=== PATIENT | female | born 1995 | race Caucasian/White ===

== ENCOUNTER 2021-07-26 18:35 | Inpatient (IN) | payer BC ==
[2021-07-26] MEDS ORDERED: Lactated Ringers 1,000 ML IV ONE (19:08)
[2021-07-26] MEDS ORDERED: Sodium Chloride 0.9% 10 ML Syringe FLUSH PRN (19:08)
[2021-07-26] MEDS ORDERED: Misoprostol 400 MCG (4 X 100 MCG TAB) RECTAL PRN (19:08)
[2021-07-26] MEDS ORDERED: Acetaminophen 325 MG Tab PO PRN (19:08)
[2021-07-26] MEDS ORDERED: Tranexamic Acid 1,000 MG in Sodium Chloride 0.9% 100 ML IV PRN (19:08)
[2021-07-26] MEDS ORDERED: Penicillin G Potassium 5 MILLUNITS in Sodium Chloride 0.9% 100 ML IV ONE (19:08)
[2021-07-26] MEDS ORDERED: Methylergonovine 0.2 MG/1 ML Amp IM PRN (19:08)
[2021-07-26] MEDS ORDERED: Lidocaine 1% 30 ML SDV INJECT PRN (19:08)
[2021-07-26] MEDS ORDERED: Ondansetron 4 MG/2 ML SDV IVPUSH PRN (19:08)
[2021-07-26] MEDS ORDERED: Carboprost Tromethamine 250 MCG/1 ML Amp IM PRN (19:08)
[2021-07-26] MEDS ORDERED: Oxytocin/Normal Saline 30 UNIT/500 ML BAG IV SCH (19:15)
[2021-07-26] MEDS ORDERED: Penicillin G Potassium 5,000,000 Unit Vial ONE (19:18)
[2021-07-26] MEDS: Lactated Ringers 1,000 ML IV SCH (19:23)
[2021-07-26] MEDS ORDERED: Nalbuphine 10 MG/1 ML Vial IM ONE (21:13)
[2021-07-26] MEDS: Penicillin G Potassium 3 MILLUNITS in Sodium Chloride 0.9% 100 ML IV SCH (23:21)
[2021-07-27] MEDS ORDERED: Nalbuphine 10 MG/1 ML Vial ONE (00:45)
--- NOTE | 2021-07-27 01:05 | HP ---
CHIEF COMPLAINT: Contractions less than 4 minutes apart. HISTORY OF PRESENT ILLNESS: Teresa is a 26-year-old G1, P0-0-0-0 with excellent care at 38-0/7 weeks' gestational age based on first trimester ultrasound. Teresa had a routine visit this morning at 10:30, cervical check performed and revealed soft, 2 cm dilated and 75% Effaced cervix. After the appointment, Teresa returned to work and began to have increased pelvic pressure. By 2:30 p.m., pelvic pressure was too painful, so she went home, sat in the tub, and began timing contractions. When contractions were less than 4 minutes apart, the patient presented to L&D with , Jean Claude, and mother, Bria. Teresa plans to delay any analgesia/anesthesia as long as possible. Plans to breastfeed. The patient denies leakage of fluid, vaginal bleeding, fevers, headache, vision changes, chest pain, shortness of breath, nausea, vomiting, diarrhea, extremity edema. Endorses movement and painful contractions. OBSTETRIC HISTORY: Last menstrual period 10/31/2020. Estimated delivery date 08/09/2021 based on first trimester ultrasound. Anterior placenta. Normal first . Tdap given. Vaccinated for flu. Doubly vaccinated against COVID with Moderna. LABS: B positive blood type. Antibody screen negative. Rubella immune. Syphilis nonreactive. Hepatitis B nonreactive. Hep C nonreactive. HIV nonreactive. Gonorrhea, chlamydia negative. Wet prep negative. TSH within normal limits. Second trimester hemoglobin 12.7, hematocrit 37.2, platelets 250K. 1-hour oral glucose tolerance test 102. The patient is GBS positive. PAST MEDICAL HISTORY: Significant for varicella infection without complication as a child. No drug, alcohol, or tobacco use. No surgical history. FAMILY HISTORY: Significant for breast cancer in maternal grandmother, possibly premenopausal. The patient's mother and father are healthy. SOCIAL HISTORY: Teresa is living near [place]. She has been since 2018 to the father of her baby, Jean Claude Cross. Jean Claude is a garnica. The patient works as a home school liaison officer. They have 2 dogs in the home. REVIEW OF SYSTEMS: See HPI. MEDICATION: vitamin. ALLERGIES: No known drug allergies. OBJECTIVE: Vitals: BP 126/68, HR 85, temp 98.7 respiratory rate 18. General: The patient in mild distress as she experiences contractions. HEENT: Grossly normal. Heart: Regular rate and rhythm without rub or murmur. Lungs: Clear to auscultation bilaterally. Abdomen: Soft, nontender, gravid. Cervical exam: Per Nursing, 3 cm dilated, 100% effaced, and a bulging bag of water at cervical os. head not well applied. Tocometer shows coupling with contractions occurring every 1-1/2 to 4 minutes. heart tone baseline of 150, moderate variability, accels present, category 1 tracing. Extremities: No edema. No clonus bilaterally. Neuro: Appropriate without deficit. LABORATORY DATA: COVID negative. Hemoglobin 13.5, platelets 248. ASSESSMENT: 1. G1, P0. 2. Active labor. 3. Group B Streptococcus positive, penicillin given. 4. Intrauterine at 38-5/7 weeks gestational age. PLAN: Admit for supervision of labor and initiate penicillin G GBS prophylaxis. Anticipate normal cares, Pitocin available if contractions space out. The patient desires to delay analgesia if possible, but happy to have nitrox, Nubain, and intrathecal available in case. plan for normal spontaneous vaginal delivery. All questions answered. The patient in agreement with plan. The patient seen by myself and Dr. Workman. Assessment and plan are under advisement of Dr. Workman. seen and agreed- [facility] /[id number] MTDD
[2021-07-27] MEDS: Lactated Ringers 1,000 ML IV SCH ×3 (02:05→02:53)
--- NOTE | 2021-07-27 02:11 | OBOUT ---
DATE: 07/26/2021 DATE AND TIME OF NST: 07/26/2021. Time 2302 hours to 2322 hours. REASON FOR NST: 1. Intrauterine at 38 weeks by 9 and 1/7 week ultrasound. 2. Active labor upon admission. 3. GBS positive. 4. Currently gotten 2nd dose of penicillin. 5. G1, P0. NST INTERPRETATION: During this time period, heart tone at baseline is approximately 150, and at least two 15 x 15 beats per minute accelerations making this strip reactive as well as reassuring. Tocometer reveals potential for contractions during this time period, felt by patient. Breathing through them. ASSESSMENT: 1. Nonstress test, reactive and reassuring. 2. Tocometer with contractions. Blood pressure 101/57, heart rate 80, temperature 99.2. PLAN: Shortly after NST was performed, vaginal exam done did reveal to be 4+ cm, 100% effaced, 0 station, vertex suspected with artificial rupture of membranes done with bulging bag of water. Yielding copious amounts of clear fluid. For history and physical, please see history and physical done in conjunction with Tiffanie Berry MS3, seen and agreed. For this, records were called for, reviewed and supplemented by patient's history as well as review of systems reviewed and felt to be contributory for what is noted. We will continue penicillin for GBS positive status. Artificial rupture of membranes done as above. We will continue to follow clinically and closely. The patient understands and agrees with the above treatment plan. [facility] /[id number]
[2021-07-27] MEDS ORDERED: fentaNYL 100 MCG/2 ML SDV ONE (02:18)
[2021-07-27] MEDS ORDERED: EPINEPHrine 1 MG/ML SDV ONE ×2 (02:18→14:04)
[2021-07-27] MEDS: Penicillin G Potassium 3 MILLUNITS in Sodium Chloride 0.9% 100 ML IV SCH ×2 (03:30→16:11)
--- NOTE | 2021-07-27 03:57 | PCM.PRNOTE ---
- Free Text/Narrative Note: Requested to provide analgesia to full term patient in severe pain. Upon entering the room, patient is sitting on edge of bed complaining of severe abdominal/pelvic pain and discomfort. Procedure was discussed with patient including adverse outcomes and expectations. Pt consented to analgesia, SAB/IT. Pt placed into a proper sitting position. Landmarks for SAB/IT were identified and marked. Hands were washed and appropriate PPE was applied. Back was prepped with betadine x3. A sterile, transparent, fenestrated drape was applied. Excess betadine was removed. Using 3 mL of a 1% lidocaine solution, a skin wheel was placed at the L2/L3 interspace. A 24 ga (4 inch) Pencan spinal needle was inserted until positive for CSF. Negative for heme or paresthesias. Injected fentanyl 30 mcg, sufentanil 25 mcg, and 7.5 mg of a 0.75% bupivacaine solution with an epi wash. Pt was placed left lateral tilt position for approximately 20 minutes. There were zero complications or adverse outcomes. Will continue to monitor. Procedure Date & Time: 07/27/21 [id number]
[2021-07-27] MEDS ORDERED: Citric Acid/Sodium Citrate Solution 30 ML Cup PO ONE (05:43)
[2021-07-27] MEDS ORDERED: ceFAZolin 2 GM in Premix Bag 1 BAG IV ONE (05:43)
[2021-07-27] MEDS ORDERED: Methylergonovine 0.2 MG Tab PO PRN (05:43)
[2021-07-27] MEDS ORDERED: Carboprost Tromethamine 250 MCG/1 ML Amp IM PRN ×2 (05:43→07:18)
[2021-07-27] MEDS ORDERED: Oxytocin 10 Units/1 ML SDV IM PRN (05:43)
[2021-07-27] MEDS ORDERED: Tranexamic Acid 1,000 MG in Sodium Chloride 0.9% 100 ML IV PRN ×2 (05:43→07:18)
[2021-07-27] MEDS ORDERED: Oxytocin/Normal Saline 30 UNIT/500 ML BAG IV SCH (05:45)
[2021-07-27] MEDS ORDERED: Lactated Ringers 1,000 ML IV SCH ×3 (05:45→07:30)
[2021-07-27] MEDS ORDERED: Oxytocin/Normal Saline 60 UNIT/1,000 ML BAG ONE (06:01)
--- NOTE | 2021-07-27 07:11 | PN ---
DATE: 07/27/2021 SUBJECTIVE: The patient has had her intrathecal, starting to feel some pressure vaginally and has sensation in her legs. She is pain free prior. OBJECTIVE: Initially evaluated vaginal exam reveals to be 7 cm, 100% effaced, 0 station, vertex suspected, and had on the chucks some bloody show also associated with clots about the size of half of a golf ball. Chucks were changed and second evaluation done shortly thereafter did reveal some more bleeding under the chucks, no cervical change, 7 cm and marked caput noted. heart tones: Reviewing heart tones when the patient was on Pitocin, did have some late decelerations in succession. Pitocin was stopped. Thereafter, there has been some mild variability and no true accelerations with vaginal exams x2 over a serial time period approximately 20 minutes or so. There have been no accelerations with vaginal exams as well. Tocometer reveals contractions every 2 to 3 minutes. Pitocin is not running. ASSESSMENT AND PLAN: Intrauterine now at 38 and 1/7th weeks by 9 and 1/7th weeks ultrasound, admitted in active labor. GBS positive. Penicillin multiple doses given. G1, P0, now with nonreassuring status with vaginal bleeding more than expected and suspect that the patient may be having an early abruption versus other issues with status. I did discuss this with the patient, her mother, and her . I did discuss with them recommendation to call in the OR crew and proceed with primary low transverse upon their arrival when they were ready unless maternal status changes and then we will make a decision at that time accordingly. I did discuss with her, her , and her mother risks, benefits, alternatives, and complications of C- section including, but not limited to, infection, bleeding, damage to internal organs such as bowel, bladder, tubes, uterus, ovaries, sometimes fetus, rarely needing blood transfusion or further surgery, and rare maternal or . She understands and agrees and wishes to proceed. Verbal and written consent obtained. Questions were answered. Proceed to the OR as soon as the crew is ready and available. [facility] /[id number]
--- NOTE | 2021-07-27 07:17 | PN ---
DATE: 07/27/2021 SUBJECTIVE: The patient feels mild pressure intrathecal has been wearing off. OBJECTIVE: heart tones in the 140s range. No true accelerations, 15 x 15 beats in the last 10 to 15 minute. Tocometer reveals contractions every 2 to 3 minutes. Vaginal exam does reveal to be unchanged 7 cm, 100% effaced, 0 station, vertex, suspected with marked caput noted and continued vaginal bleeding more then expected and there is a small stringy-like clot. ASSESSMENT AND PLAN: Increased vaginal bleeding with slowed cervical dilation with concerns with status and potential for abruption. I did discuss with the patient earlier proceeding to the OR as soon as crew is ready and available. They are at this point in time. We will proceed to the OR as soon as possible for primary low transverse . She understands and agrees with the above treatment plan. [facility] /[id number] OJ
[2021-07-27] MEDS ORDERED: Acetaminophen 325 MG Tab PO PRN (07:18)
[2021-07-27] MEDS ORDERED: diphenhydrAMINE 50 MG/ML SDV IVPUSH PRN (07:18)
[2021-07-27] MEDS ORDERED: Misoprostol 400 MCG (4 X 100 MCG TAB) RECTAL PRN (07:18)
[2021-07-27] MEDS ORDERED: Naloxone 2 MG/2 ML Syringe IVPUSH PRN (07:18)
[2021-07-27] MEDS ORDERED: ePHEDrine 50 MG/ML SDV IVPUSH PRN (07:18)
[2021-07-27] MEDS ORDERED: Ondansetron 4 MG/2 ML SDV IVPUSH PRN (07:18)
[2021-07-27] MEDS ORDERED: Methylergonovine 0.2 MG/1 ML Amp IM PRN (07:18)
[2021-07-27] MEDS ORDERED: Ketorolac 30 MG/ML SDV IVPUSH SCH (07:30)
--- NOTE | 2021-07-27 09:20 | OR ---
DATE: 07/27/2021 PREOPERATIVE DIAGNOSES: 1. Intrauterine at 38-1/7 weeks by 9-1/7 weeks ultrasound. 2. Increased vaginal bleeding. 3. Concerns with heart tones - abruption suspected. 4. Active labor upon admission. 5. GBS positive, multiple doses of penicillin given. 6. G1, P0. POSTOPERATIVE DIAGNOSES: 1. Intrauterine at 38-1/7 weeks by 9-1/7 weeks ultrasound - delivered. 2. Increased vaginal bleeding. 3. Concerns with heart tones - abruption suspected. 4. Active labor upon admission. 5. GBS positive, multiple doses of penicillin given. 6. G1, P0. 7. Placental abruption noted at delivery with old blood noted with delivery of placenta and fetus. PROCEDURES PERFORMED: 1. On 07/26/2021, NST, artificial rupture membranes. 2. On 07/27/2021, Pitocin augmentation that was subsequently stopped followed by primary low transverse with 2-layer uterine closure. FIRST ASSISTANTS: 1. Stephanie Franco MD. 2. Tiffanie Berry MS3. ANESTHESIA: Spinal. ESTIMATED BLOOD LOSS: 900 mL. INTRAVENOUS FLUIDS: 1500 mL. URINE OUTPUT: 500 mL and clear yellow. Start 6:30, uterine incision 6:33, delivery 6:33, and stop 7:03. FINDINGS: Male, scores of 9 and 9, weight pending. With old blood noted with delivery of placenta and fetus with abruption noted. DESCRIPTION OF PROCEDURE IN DETAIL: After proper consent obtained, the patient was brought to the operating room where spinal anesthetic was administered. Carney was placed under preop under sterile conditions. The abdomen was prepped and draped in normal sterile fashion using Betadine for timeliness with the patient placed in supine position with left lateral tilt. A skin incision was then made over lower abdomen in transverse Pfannenstiel-type fashion. This was carried down to the fascia and scored in the midline. Subcutaneous tissue raked laterally bluntly, and fascial incision extended laterally bluntly, and rectus and pyramidalis muscles were dissected from the fascia both superiorly and inferiorly with blunt technique. Rectus muscles were in midline with blunt technique. Abdominal cavity was entered in blunt technique. Incision was extended superiorly and inferiorly with blunt technique. Hamzah O large retractor was then introduced and used. Vesicouterine peritoneum was identified, incised in transverse fashion with Metzenbaum scissors. Bladder flap was made digitally. A curvilinear incision was made on lower uterine segment at 0633 hours. Uterus was entered sharply. Clear fluid returned. Uterine incision was then extended in transverse fashion. vertex was then delivered through the abdomen with OA presentation noted. Subsequently, rest of the infant was delivered without difficulty. Mouth and nares were suctioned. Cord was doubly clamped and cut, and was brought to team. Old blood was noted with delivery of the infant. Placenta was then attempted to be delivered with gentle cord traction and fundal massage. Cord avulsion occurred. Placenta was removed manually, and old blood clot was noted with delivery of the placenta as well. Subsequently, uterine cavity was cleared of all blood clots and debris with lap sponge. Benjamin clamps were used to grasp the uterine incision. This was closed in a running locked fashion and tied at lateral margins with 1-0 Vicryl. Second imbricating layer was then used with 1-0 Vicryl and tied at lateral margins. First inspection of the uterine incision revealed hemostasis. Hamzah O retractor was removed, and paracolic gutters were then cleared of all blood clots and debris with lap sponge. Anterior cul-de-sac was then irrigated copiously, and all blood clots were removed. Second and final inspection of the uterine incision and anterior cul-de-sac revealed hemostasis. Rectus muscles were then reapproximated in midline with figure-eight stitch using 1-0 Vicryl. Subfascial tissues were found to be hemostatic. Fascia was closed in a running fashion and tied at lateral margins with 0 looped PDS. Subcutaneous tissue was irrigated copiously. Hemostasis reassured. Skin was reapproximated with subcuticular stitch using Monocryl on a Noe needle followed by Steri-Strips and dressing applied. Firm uterus noted, -2 below umbilicus. No immediate complications noted. Sponge, lap, and needle counts correct. The patient received 2 g of Ancef preoperatively, Pitocin per protocol, and received Toradol at the conclusion of the case for pain control. Mother and are currently stable at time of dictation. [facility] /[id number]
[2021-07-27] MEDS: Prenatal Multivitamin with Calcium/Folic Acid/Iron Tab PO SCH (11:56)
[2021-07-27] MEDS: Simethicone 80 MG Tab.Chew PO SCH ×4 (11:57→21:25)
[2021-07-27] MEDS: Ketorolac 30 MG/ML SDV IVPUSH SCH ×2 (12:45→18:40)
[2021-07-27] MEDS ORDERED: Metoclopramide 10 MG/2 ML SDV IVPUSH PRN (13:48)
[2021-07-27] MEDS ORDERED: Lactated Ringers 1,000 ML IV ONE (14:03)
[2021-07-27] MEDS ORDERED: Ketorolac 30 MG/ML SDV IVPUSH ONE (14:03)
[2021-07-27] MEDS ORDERED: Morphine PF 10 MG/10 ML SDV ONE (14:03)
[2021-07-27] MEDS ORDERED: fentaNYL 100 MCG/2 ML SDV ITHECAL ONE (14:04)
[2021-07-27] MEDS: Docusate Sodium 100 MG Cap PO PRN (21:21)
[2021-07-28] MEDS: Ketorolac 30 MG/ML SDV IVPUSH SCH (00:28)
[2021-07-28] MEDS: Acetaminophen/oxyCODONE 325-5 MG Tab PO PRN ×3 (06:45→21:03)
[2021-07-28] MEDS: Ibuprofen 800 MG Tab PO PRN ×2 (09:58→18:34)
[2021-07-28] MEDS: Prenatal Multivitamin with Calcium/Folic Acid/Iron Tab PO SCH (09:58)
[2021-07-28] MEDS: Simethicone 80 MG Tab.Chew PO SCH ×4 (10:00→21:03)
[2021-07-28] MEDS: Docusate Sodium 100 MG Cap PO PRN ×2 (10:01→21:03)
--- NOTE | 2021-07-28 11:23 | PN ---
DATE: 07/28/2021 Postop day #1 status post primary low transverse . SUBJECTIVE: Patient is doing well. Tolerating p.o., ambulating, Carney removed, urinating and passing gas. Pain is under control with Percocet and Motrin. Bleeding is also under control per patient report. Mother does have mild concern of tongue-tie for her . Feeding has been slightly difficult but improved with nipple shield. OBJECTIVE: Vital Signs: Temp 98.7, pulse 83, blood pressure 97/55, respiratory rate 16. Abdomen: Firm uterus around umbilicus. Dressing has mild shadowing marked with pen that is dry and intact. Abdomen nontender. Extremities: No erythema, tenderness, or edema noted. LABORATORY DATA: Pre-admission hemoglobin was 13.5, platelets 248. Today's hemoglobin and platelets are pending. ASSESSMENT: 1. Postop day #1 status post repeat low-transverse at 38-5/7 weeks gestational age. 2. G1 now P1 3. GBS positive, adequately treated with penicillin. 4. Blood type B+, Rubella immune PLAN: We will continue to follow clinically and closely. Patient is doing well, and we will monitor feeding throughout the day, and if still having issues, we will consider frenotomy for tomorrow morning. Discharge also planned for tomorrow. The patient agrees with plan, and questions have been answered. Patient was seen by myself and Dr. Franco and assessment and plan are under advisement of Dr. Franco. [facility] /[id number] [facility]
[2021-07-29] MEDS: Ibuprofen 800 MG Tab PO PRN ×2 (01:24→10:41)
[2021-07-29] MEDS: Acetaminophen/oxyCODONE 325-5 MG Tab PO PRN ×2 (08:49→15:35)
[2021-07-29] MEDS: Simethicone 80 MG Tab.Chew PO SCH ×2 (08:51→15:35)
[2021-07-29] MEDS: Docusate Sodium 100 MG Cap PO PRN (08:51)
[2021-07-29] MEDS: Prenatal Multivitamin with Calcium/Folic Acid/Iron Tab PO SCH (08:51)
--- NOTE | 2021-07-29 12:12 | DISCH ---
ADMIT DIAGNOSES: 1. Intrauterine at 38 and 1/7 weeks confirmed by 9-week ultrasound. 2. G1, P0. 3. Group B streptococcus positive. 4. Blood type B positive, rubella immune. DISCHARGE DIAGNOSES: 1. Intrauterine at 38 and 1/7 weeks confirmed by 9-week ultrasound. 2. Status post primary low transverse under intrathecal anesthesia. 3. G1, P1 and placental abruption noted at delivery. 4. Group B streptococcus positive, adequately treated with penicillin. 5. Blood type B positive, rubella immune. PROCEDURES PERFORMED: 1. Artificial rupture of membranes. 2. Primary low-transverse under intrathecal anesthesia. BRIEF HISTORY: A 26-year-old, G1, now P1 at 38 and 0/7 weeks' gestation, presents with above listed diagnoses in spontaneous labor. She then after artificial rupture of membranes was failing to progress, had increased vaginal bleeding, and decreased heart tones prompting an emergent with suspicion of placental abruption. produced a term male , scores 9 and 9 with a weight of 3085 g. Mother and baby did well directly after . Estimated blood loss of 900 mL. Hospital course has been good. The patient has been tolerating p.o., ambulating and breast-feeding well. Baby did note to have a tongue tie and underwent frenulotomy. Bleeding has been decreasing. The patient notes some mild pain on right side of incision. The pain has been controlled with scheduled Percocet and Motrin. No sign of infection, hemorrhage, or preeclampsia. Also denies any chest pain or shortness of breath. DISCHARGE CONDITION: Good. PHYSICAL EXAMINATION: Vital Signs: Temp 98.4, pulse 88, blood pressure 103/60, respiratory rate 16. Heart: Regular without murmur. Lungs: Clear to auscultation bilaterally. Abdomen: Soft, nontender. Fundus firm below umbilicus. Extremities: No edema, erythema, or tenderness noted. LABORATORY DATA: Pre-admission hemoglobin 13.5 and platelets 248. Discharge hemoglobin 11.1, platelets 230. DISPOSITION: Home with family. MEDICATIONS: [id number] Tylenol, ibuprofen, and prescribed Percocet as needed for pain. Continue vitamin and additionally add 325 mg ferrous sulfate for blood loss anemia. FOLLOWUP: With Dr. Workman next 07/31/2021 in clinic and also in 6 weeks for first examination. INSTRUCTIONS: Routine post section instructions for mother were provided and all questions answered. The patient was seen by myself and Dr. Franco. Assessment and plan under advisement of Dr. Franco. [facility] /[id number] MTDKendrick
== END 2021-07-29 16:25 | disposition home or self-care (01) | DRG 540 ==
LOC: DL.OBCHECK 18:35 → DL.OB 19:24
PROVIDERS: ADMIT Family Medicine; ATTEND Family Medicine
PROC: 10D00Z1 Extraction of Products of Conception, Low, Open Approach (ICD-10-PCS; principal; 2021-07-26)
PROC: 10907ZC Drainage of Amniotic Fluid, Therapeutic from Products of Conception, Via Natural or Artificial Opening (ICD-10-PCS; 2021-07-26)
PROC: 4A1HXCZ Monitoring of Products of Conception, Cardiac Rate, External Approach (ICD-10-PCS; 2021-07-26)
DX: O99.824 Streptococcus B carrier state complicating childbirth (principal); Z3A.38 38 weeks gestation of pregnancy; Z37.0 Single live birth; O45.93 Premature separation of placenta, unspecified, third trimester
CPT/HCPCS: 01961; 01967; 36415; 51702; 85027; 86850; 86900; 86901; A9270-GY; J0171; J0690; J1885; J2270; J2300; J2405; J2540; J2590; J2765; J3010; J7120; U0002

== ENCOUNTER 2025-01-19 10:20 | Inpatient (IN) | payer BC ==
[2025-01-19] MEDS ORDERED: Misoprostol 100 MCG Tab RECTAL PRN (11:00)
[2025-01-19] MEDS ORDERED: Acetaminophen 325 MG Tab PO PRN (11:00)
[2025-01-19] MEDS ORDERED: Ibuprofen 800 MG Tab PO PRN (11:00)
[2025-01-19] MEDS ORDERED: diphenhydrAMINE 50 MG/ML SDV IVPUSH PRN (11:00)
[2025-01-19] MEDS ORDERED: Tranexamic Acid 1,000 MG in Sodium Chloride 0.9% 100 ML IV PRN (11:00)
[2025-01-19] MEDS ORDERED: ePHEDrine 50 MG/ML SDV IVPUSH PRN (11:00)
[2025-01-19] MEDS ORDERED: Methylergonovine 0.2 MG/1 ML Amp IM PRN (11:00)
[2025-01-19] MEDS ORDERED: Naloxone 2 MG/2 ML Syringe IVPUSH PRN (11:00)
[2025-01-19] MEDS ORDERED: Ondansetron 4 MG/2 ML SDV IVPUSH PRN (11:00)
[2025-01-19] MEDS ORDERED: Acetaminophen/oxyCODONE 325-5 MG Tab PO PRN (11:00)
[2025-01-19] MEDS ORDERED: Carboprost Tromethamine 250 MCG/1 ML Amp IM PRN (11:00)
[2025-01-19] MEDS: Prenatal Multivitamin with Calcium/Folic Acid/Iron Tab PO SCH (11:28)
[2025-01-19] MEDS: Simethicone 80 MG Tab.Chew PO SCH (11:28)
[2025-01-19] MEDS: Lactated Ringers 1,000 ML IV SCH (11:30)
[2025-01-19 11:31] LABS: HEMATOCRIT 38.6 % (37.0-47.0); MEAN CORPUSCULAR HEMOGLOBIN 31.5 pg (27.0-34.0); MEAN CORPUSCULAR HGB CONC 33.7 g/dL (33.0-35.0); MEAN CORPUSCULAR VOLUME 93.5 fL (80-100); RED BLOOD CELL COUNT 4.13 10^6/uL (4.2-5.4); WHITE BLOOD CELL COUNT,WBC 10.8 10^3/uL (5.0-10.0)
[2025-01-19] MEDS ORDERED: ceFAZolin 1 GM Vial ONE (13:38)
[2025-01-19] MEDS: Oxytocin/Normal Saline 30 UNIT/500 ML BAG IV SCH (14:25)
[2025-01-19] MEDS: Ketorolac 30 MG/ML SDV IVPUSH ONE (15:27)
[2025-01-19] MEDS: Ketorolac 30 MG/ML SDV IVPUSH SCH ×2 (17:45→21:46)
[2025-01-19] MEDS: Docusate Sodium 100 MG Cap PO PRN (21:43)
[2025-01-19] MEDS: ceFAZolin 2 GM Vial IVPUSH ONE (22:08)
[2025-01-20] MEDS ORDERED: Propofol 200 MG/20 ML SDV ONE (05:52)
[2025-01-20 06:24] LABS: HEMATOCRIT 36.5 % (37.0-47.0); HEMOGLOBIN 12.1 g/dL (12.0-16.0); MEAN CORPUSCULAR HEMOGLOBIN 31.4 pg (27.0-34.0); MEAN CORPUSCULAR HGB CONC 33.2 g/dL (33.0-35.0); MEAN CORPUSCULAR VOLUME 94.8 fL (80-100); RED BLOOD CELL COUNT 3.85 10^6/uL (4.2-5.4); WHITE BLOOD CELL COUNT,WBC 9.9 10^3/uL (5.0-10.0)
[2025-01-20] MEDS ORDERED: Glycopyrrolate 0.2 MG/ML 2 ML SDV ONE (07:04)
[2025-01-20] MEDS: Promethazine 25 MG/ML SDV IM ONE (08:58)
[2025-01-20] MEDS: Nalbuphine HCl 10 MG/ 1ML Amp IVPUSH ONE (08:58)
[2025-01-20] MEDS: Acetaminophen/oxyCODONE 325-5 MG Tab PO PRN (12:52)
[2025-01-20] MEDS: Ibuprofen 800 MG Tab PO PRN (16:50)
== END 2025-01-21 15:00 | disposition home or self-care (01) | DRG 540 ==
LOC: DL.OB 10:20 → OBSVTOIN 13:45
PROVIDERS: ADMIT Family Medicine; ATTEND Family Medicine
PROC: 10D00Z1 Extraction of Products of Conception, Low, Open Approach (ICD-10-PCS; principal; 2025-01-19 13:30)
DX: O34.211 Maternal care for low transverse scar from previous cesarean delivery (principal); Z3A.39 39 weeks gestation of pregnancy; Z37.0 Single live birth; O99.824 Streptococcus B carrier state complicating childbirth
CPT/HCPCS: 01961; 36415; 59025; 59409; 85027; 86850; 86900; 86901; 94010; A9270-GY; J1885; J2590; J7120